=== PATIENT | female | born 1935 | race Caucasian/White ===

== ENCOUNTER 2021-01-05 01:17 | Inpatient (IN) | payer OTHER ==
[~2021-01-05] VITALS: Ht 152.4 cm; Wt 59.6 kg
[2021-01-05 01:18] VITALS: BP 177/87
[2021-01-05 01:43] LABS: ABSOLUTE NEUTROPHILS 5.7 thou/uL (1.4-8.2); BASOPHILS 0.7 % (0.0-2.0); EOSINOPHILS 2.6 % (0.0-3.0); HEMATOCRIT 38.4 % (37.0-47.0); HEMOGLOBIN 13.1 gm/dL (12.0-15.0); LYMPHOCYTES 13.9 % (24.0-44.0); MCH 29.7 pg (26.0-34.0); MCHC 34.2 g/dL (28.0-37.0); MCV 86.9 fL (80.0-100.0); MONOCYTES 6.5 % (1.0-8.0); PLATELET COUNT 237 thou/uL (150-400); POLYS 76.3 % (36.0-66.0); RBC 4.42 mil/uL (4.20-5.00); RDW 13.7 % (10.5-14.5); WBC 7.5 thou/uL (4.0-11.0)
[2021-01-05 01:48] LABS: CALCIUM 9.2 mg/dL (8.5-10.1); CREATININE 0.9 mg/dL (0.6-1.0); POTASSIUM 3.9 mmol/L (3.5-5.1)
[2021-01-05 01:58] LABS: ALBUMIN 3.4 g/dL (3.4-5.0); DIRECT BILIRUBIN 0.1 mg/dL (<0.1-0.2); TOTAL BILIRUBIN 0.6 mg/dL (0.2-1.0); TOTAL PROTEIN 6.7 g/dL (6.4-8.2)
[2021-01-05 02:18] LABS: URINE BILIRUBIN NEGATIVE (Negative); URINE BLOOD 2+ (Negative); URINE CLARITY CLEAR; URINE COLOR YELLOW; URINE GLUCOSE-RANDOM* NEGATIVE (Negative); URINE KETONES NEGATIVE (Negative); URINE LEUKOCYTES-REFLEX NEGATIVE (Negative); URINE NITRITE-REFLEX NEGATIVE (Negative); URINE PROTEIN (DIPSTICK) NEGATIVE (Negative); URINE SPECIFIC GRAVITY 1.025 (1.005-1.035); URINE UROBILINOGEN 0.2 E.U./dl (0.2-1.0)
[2021-01-05 02:56] LABS: BACTERIA-REFLEX None Seen /HPF (None Seen); CASTS None Seen /LPF (None Seen); CRYSTALS None Seen /LPF (None Seen); MUCUS None Seen strn/LPF (None Seen); SQUAMOUS None Seen /LPF (0-3); URINE RBC 1-2 Rare /HPF (NONE SEEN); URINE WBC-REFLEX None Seen /HPF (0-5)
[2021-01-05 09:06] VITALS: BP 166/80
[2021-01-05 09:11] LABS: CHOLESTEROL 164 mg/dL (<200); HDL CHOLESTEROL 50 mg/dL (>40); LDL CHOLESTEROL 91 mg/dL (<100); TC:HDL 3.3 Ratio (Not establshd); TRIGLYCERIDE 119 mg/dL (<150); VLDL 24 mg/dL (<40)
[2021-01-05 09:34] VITALS: BP 176/90
[2021-01-05 10:15] VITALS: BP 162/78
--- NOTE | 2021-01-05 18:44 | NUR ---
0930 PT ORIENTED TO ROOM AND UNIT, BED LWO AND LOCKED, SIDE RAILS UP X3, CALL LIGHT IN REACH, TELE APPLIED.
--- NOTE | 2021-01-05 19:53 | NUR ---
ENd shif note : Pt remained safe , no fall , afebrile, VS stable, one episode of unmeasured vomitus early this morning, SR on tele. nauseated all day, NPO order maintained, med given as scheduled. POC for chest pain in process. No other concerns
[2021-01-05 20:07] VITALS: BP 134/63
[2021-01-06 04:34] VITALS: BP 140/63
--- NOTE | 2021-01-06 06:36 | NUR ---
PROGRESS PT A/O X4. LUNGS CLEAR ABDOMEN SOFT WITH HYPOACTIVE BS, REPORTS LEFT UPPER QUADRANT PAIN AT AN 8 OUT OF 0/10 SCALE. PC TO WOJCIECH STILES AND A ONETIME DOSE FOR 25 MCG OF FENTANYL OBTAINED AND GIVEN WITH EFFECT PT SLEPT FOR REMAINDER OF NIGHT. UP TO BSC WITH ASSIST OF 1 VOIDING QS. REMAINS NPO FOR PIPPIDA SCAN TODAY. ORAL SWABS AT BEDSIDE FOR COMFORT. SKIN C/D/I. FALL PRECAUTIONS IN PLACE. PT USING CALL LIGHT APPROPRIATELY.
--- NOTE | 2021-01-06 07:39 | EKG ---
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
--- NOTE | 2021-01-06 07:39 | EKG ---
[address] [place] [address] ELECTROCARDIOGRAM REPORT Name: TIANA BILLY Room #: 218-P ADM IN M.R.#: [id number] Admission: 01/05/21 Attend Phys: Ronda Carlisle MD Discharge: Date of : 39 Report #: [id number] [facility] ED Test Date: 2021-01-05 Test Time: 01:17:51 Pat Name: TIANA BILLY Department: Room: 218 Gender: F Search Developer: : 1935 Requested By: Jagdeep Pineda Order Number: [id number] : Arpan Woods Measurements Intervals [place] Rate: 72 P: 54 SD: 155 QRS: 23 QRSD: 82 T: 29 QT: 382 QTc: 419 Interpretive Statements Sinus rhythm Low voltage, precordial leads No previous ECG available for comparison Electronically Signed On 01-06-2021 7:38:54 CDT by Arpan Woods [email or web address] <ELECTRONICALLY SIGNED> By: Arpan Woods MD, [facility] 01/06/21 0738 0117 0117 Arpan Woods MD, FACC /EPI
--- NOTE | 2021-01-06 07:39 | EKG ---
[address] [place] [place] [address] ELECTROCARDIOGRAM REPORT Name: TIANA BILLY Room #: 218-P ADM IN M.R.#: [id number] Admission: 01/05/21 Attend Phys: Ronda Carlisle MD Discharge: Date of : 39 Report #: [id number] [facility] ED Test Date: 2021-01-05 Test Time: 05:25:11 Pat Name: TIANA BILLY Department: Room: 218 Gender: F Public Health: nereida : 1935 Requested By: Jagdeep Pineda Order Number: [id number] MD: Arpan Woods Measurements Intervals [place] Rate: 70 P: 25 SD: 162 QRS: 12 QRSD: 105 T: 18 QT: 374 QTc: 404 Interpretive Statements Sinus rhythm Atrial premature complex Probable left atrial enlargement Low voltage, precordial leads Minimal ST depression, lateral leads Compared to ECG 01/05/2021 02:23:01 Atrial premature complex(es) now present ST (T wave) deviation now present Electronically Signed On 01-06-2021 7:39:06 CDT by Arpan Woods [email or web address] <ELECTRONICALLY SIGNED> By: Arpan Woods MD, FAC 01/06/21 0739 0525 0525 Arpan Woods MD, [facility] /EPI
[2021-01-06 08:00] VITALS: BP 150/45
--- NOTE | 2021-01-06 10:59 | 2DMMODE ---
[facility] [place] [address] 2 D/M-MODE ECHOCARDIOGRAM Name: TIANA BILLY Room #: 218-P ADM IN M.R.#: [id number] Admission: 01/05/21 Attend Phys: Ronda Carlisle MD Discharge: Date of : 37 Report #: [id number] THIS REPORT FOR: cc: Deyvi Salinas MD, David R. MD Lammoglia, Francisco J. MD ~ APPROVED REPORT Study performed: 01/06/2021 08:19:32 EXAM: Comprehensive 2D, Doppler, and color-flow Echocardiogram Patient Location: In-Patient Room #: 218 BSA: 1.55 HR: 74 bpm BP: 140/63 mmHg Rhythm: NSR Other Information Study Quality: Good Risk Factors: Cardiac Risk Factors: HTN Indications Chest Pain N^V 2D Dimensions IVSd: 9.45 (7-11mm) LVOT Diam: 19.03 (18-24mm) LVDd: 36.68 mm PWd: 8.68 (7-11mm) Ascending Ao: 24.86 (22-36mm) LVDs: 24.22 (25-40mm) Left Atrium: 29.14 (27-40mm) Aortic Root: 22.74 mm Volumes Left Atrial Volume (Systole) Single Plane 4CH: 53.72 mL Single Plane 2CH: 20.71 mL Biplane LA Volume: 37.00 mL LA ESV Index: 24.00 mL/m2 Aortic Valve AoV Peak Brayden.: 1.44 m/s [facility] [address] [place] [address] 2 D/M-MODE ECHOCARDIOGRAM Name: BILLYTIANAJILLIAN NEW Room #: 218-P [facility] IN .R.#: [id number] Admission: 01/05/21 Attend Phys: Ronda Carlisle, Discharge: Date of : 39 Report #: [id number] AO Peak Gr.: 8.25 mmHg LVOT Max P.99 mmHg LVOT Max V: 0.86 m/s BRANDT Vmax: 1.71 cm2 Mitral Valve E/A Ratio: 1.4 MV Decel. Time: 239.05 ms MV E Max Brayden.: 0.80 m/s MV A Brayden.: 0.58 m/s MV PHT: 69.32 ms IVRT: 73.82 ms Pulmonary Valve PV Peak Brayden.: 1.01 m/s PV Peak Gr.: 4.11 mmHg Pulmonary Vein P Vein S: 0.44 m/s P Vein A: 0.33 m/s P Vein D: 0.39 m/s P Vein A Dur.: 124.6 msec P Vein S/D Ratio: 1.13 Left Ventricle The left ventricle is normal size. There is normal LV segmental wall motion. There is normal left ventricular wall thickness. Left ventricular systolic function is normal. The left ventricular ejection fraction is within the normal range. LVEF is 60-65%. The left ventricular diastolic function is normal. Right Ventricle The right ventricle is normal size. The right ventricular systolic function is normal. Atria The left atrium size is normal. The right atrium size is normal. Aortic Valve The aortic valve is normal in structure. No aortic regurgitation is present. There is no aortic valvular stenosis. Mitral Valve The mitral valve is normal in structure. Mild mitral regurgitation. No evidence of mitral valve stenosis. Tricuspid Valve The tricuspid valve is normal in structure. Trace tricuspid regurgitation. Unable to assess PA pressure. [facility] [address] [place] [address] 2 D/M-MODE ECHOCARDIOGRAM Name: TIANA BILLY Room #: 218-P ADM IN M.R.#: [id number] Admission: 01/05/21 Attend Phys: Ronda Carlisle, Discharge: Date of : 39 Report #: [id number] Pulmonic Valve The pulmonary valve is normal in structure. Mild pulmonic regurgitation. Great Vessels The aortic root is normal in size. IVC is normal in size and collapses >50% with inspiration. Pericardium There is no pericardial effusion. <Conclusion> The left ventricle is normal size. There is normal LV segmental wall motion. LVEF is 60-65%. The left atrium size is normal. The aortic valve is normal in structure. The mitral valve is normal in structure. Mild mitral regurgitation. The tricuspid valve is normal in structure. Trace tricuspid regurgitation. Unable to assess PA pressure. The pulmonary valve is normal in structure. Mild pulmonic regurgitation. The aortic root is normal in size. There is no pericardial effusion. <ELECTRONICALLY SIGNED> By: Klaus Duncan MD 01/06/21 1059 1059 1059 Klaus Duncan MD /INF
[2021-01-06 12:30] VITALS: BP 124/73
--- NOTE | 2021-01-06 15:38 | NUR ---
Met with patient and dtr at bedside. Patient admits with chest pain. Resides with spouse in independent home in [facility]. All needs on one level with 3 steps to enter. Patient reports recent humerous fx and rec skilled rehab at [facility]. She has since discharged home with [facility] care. Plan to resume. Updated [facility]. Patient with 4 children. She uses a walker at home. HH PT visited with patient Tuesday. Patient initially did not recall visit. Plan home with HH at sd. Therapy evals in process. Casemgt following.
[2021-01-06 16:00] VITALS: BP 117/62
[2021-01-06 20:13] VITALS: BP 110/85
[2021-01-07 04:48] VITALS: BP 117/54
--- NOTE | 2021-01-07 06:42 | NUR ---
Assumed pt's beginning of this shift. ALert and oriented. VSS on RA. Meds given per emar. NPO after MN for chan garces today. NS at 80 currently infusing. Pt calls out appropriately. Pain med given x1 this shift. Relief noted. Pt up x1 with walker and gait belt to bathroom. Fall precaution in place. Call light within reach. Nursing to continue to monitor.
[2021-01-07 07:58] VITALS: BP 140/64
[2021-01-07 13:14] LABS: MCH 30.1 pg (26.0-34.0); MCV 86.1 fL (80.0-100.0); RBC 4.65 mil/uL (4.20-5.00); RDW 13.2 % (10.5-14.5); WBC 9.1 thou/uL (4.0-11.0)
[2021-01-07 13:34] LABS: CREATININE 0.8 mg/dL (0.6-1.0); MAGNESIUM 1.9 mg/dL (1.8-2.4); POTASSIUM 3.9 mmol/L (3.5-5.1)
[2021-01-07 17:39] VITALS: BP 141/72
[2021-01-07 19:49] VITALS: BP 145/76
--- NOTE | 2021-01-07 20:30 | NUR ---
PT ALERT AND ORIENTED TIMES FOUR. VSS THIS MORNING. PT WAS TAKEN TO SURGERY THIS MORNING FOR A LAP RAMONA. PT RETURNED THIS AFTERNOON. 4LAP SITES, MEDICATIONS GIVEN FOR PAIN AND ELEVATED BP. PT DAUGHTER AND AT BEDSIDE AFTER SURGERY. WILL CONTINIUE TO MONITOR.
[2021-01-08 04:20] VITALS: BP 155/75
[2021-01-08 04:52] VITALS: BP 134/74
--- NOTE | 2021-01-08 06:22 | NUR ---
Beginning of this shift. Pt was oriented to name. Unable to verbalize birthday. Disoriented to place and situation. Dtr at bedside at that time. Dtr concerned about pt's neurological status. Dtr educated that pt is some hours post op, anesthesia may not have worn off. Nursing notified oncall DUCT CLEANER of dtr's concerns. Pt is still few hours post op with anesthesia, may take up to 24 hours to return to pre op neuro status per DUCT CLEANER. Pt awake this am, AxO x4. Complaining of back pain. Pain med given. Ice pack provided. Fall precaution in place. Call light within reach. Nursing to continue to monitor.
[2021-01-08 07:30] VITALS: BP 159/63
--- NOTE | 2021-01-08 07:36 | NUR ---
Pt also incontinent of bladder. Bed change done this am. dtr assisted per choice.
[2021-01-08 12:00] VITALS: BP 162/55
--- NOTE | 2021-01-08 14:07 | PATH ---
[facility] [address] [place] [address] PATHOLOGY RPT PROCEDURE Name: TIANA BILLY Room #: 218-P ADM IN M.R.#: [id number] Admission: 01/05/21 Date of : 39 Discharge: Report #: [id number] Path Case #: [id number] [facility] Accession Number: [id number] . 01 Material submitted: . gallbladder - GALLBLADDER . 01 Clinical history: . LAPAROSCOPIC CHOLECYSTECTOMY W/GRAM ACUTE CHOLECYSTITIS CHEST PAIN . 02 Diagnosis: Gallbladder, cholecystectomy: - Moderate acute cholecystitis with focal surface ulceration. - Cholelithiasis. - Incidental lymph node. (IUV/db; 01/08/2021) LBQ 01/08/2021 1227 Local . 02 Electronically signed: . Sharla Chavez MD, Pathologist NPI- [id number] . 01 Gross description: . Fixative: Formalin Labeled: Gallbladder Specimen received: A previously disrupted gallbladder Dimensions: 11.0 x 4.5 x 1.4 cm Serosa: Clark, diffusely hemorrhagic and smooth Lymph node: A probable lymph node is identified measuring 0.6 x 0.5 x 0.3 cm. Mucosa: Bile-stained, diffusely hemorrhagic, and focally effaced Average wall thickness: 0.2 cm Calculi: Multiple yellow, bosselated, friable stones are identified measuring 3.5 x 3.2 x 0.9 cm in aggregate. Abnormalities: None identified A1- probable lymph node (intact), branch sales and service representative body, fundus, and the cystic duct margin. (MRF; 01/07/2021) MFE/E 01/07/2021 1704 Local . 02 Pathologist provided ICD-10: K80.00 . 02 CPT . [id number] [address] [address] PATHOLOGY RPT PROCEDURE Name: TIANA BILLY Room #: 218-P ADM IN M.R.#: [id number] Admission: 01/05/21 Date of : 39 Discharge: Report #: [id number] Path Case #: [id number] Specimen Comment: A courtesy copy of this report has been sent to [phone] Specimen Comment: [phone] Specimen Comment: Report sent to / DR LAINEZ Performed at: [address], [place] [id number] MD Bhavin Garcia MD Phone: [phone] Performed at: [address] [id number] MD Sharla Chavez MD Phone: [phone]
[2021-01-08 20:05] VITALS: BP 162/74
[2021-01-08] MEDS ORDERED: GABAPENTIN600 M1 PO (20:54)
[2021-01-09 04:33] VITALS: BP 160/70
--- NOTE | 2021-01-09 06:26 | NUR ---
Assumed pt's care this pm shift. Pt was lethargic beginning of shift. Unable to wake up enough to take PO HS meds. Dtr at bedside beginning of shift. Pt able to wake up and have conversation this am. Denies pain. Alert and oriented to person, place and situation. Pt incont of bladder this shift. Currently denying pain. Call light within reach. Will continue to monitor.
[2021-01-09 07:00] VITALS: BP 152/68
--- NOTE | 2021-01-09 09:59 | O ---
[facility] [place] [address] OPERATIVE REPORT Name: TIANA BILLY Room #: 218-P ADM IN M.R.#: [id number] Admission: 01/05/21 Attend Phys: Ronda Carlisle MD Discharge: Date of : 37 Report #: [id number] THIS REPORT FOR: cc: Deyvi Salinas MD, David R. MD Patterson,Jeffrey Jackson MD ~ DATE OF SERVICE: 01/07/2021 PREOPERATIVE DIAGNOSIS: Symptomatic cholelithiasis. POSTOPERATIVE DIAGNOSIS: Acute cholecystitis. OPERATION: Laparoscopic cholecystectomy. SURGEON: Jeffrey Grijalva M.D. ANESTHESIA: General. ESTIMATED BLOOD LOSS: 30 mL. SPECIMENS: Gallbladder. DESCRIPTION OF PROCEDURE: After informed consent was obtained, the patient was brought to the operating room and placed supine. SCDs were placed and working, preoperative antibiotics were administered, general anesthesia was induced. The abdomen was prepped and draped in the usual sterile fashion. A 10 mm incision was made above the umbilicus. Fascia was incised and a trocar was placed. Pneumoperitoneum was established. Three right upper quadrant 5 mm ports were placed. Gallbladder was grasped at the fundus and retracted cephalad. Infundibulum was grasped and retracted laterally. I dissected out the cystic duct and the cystic artery. I dissected out the cystic plate. The cystic duct was clipped and ligated leaving a clip and a PDS Endoloop on the remaining duct. Cystic artery was clipped and ligated leaving a clip on the remaining artery. Gallbladder was then taken off the liver bed with electrocautery. There was good hemostasis. The ports were removed under direct vision. The skin was closed with 4-0 Monocryl. Incisions were dressed with Steri-Strips. COMPLICATIONS: None. DISPOSITION: The patient was taken to recovery in satisfactory condition. <ELECTRONICALLY SIGNED> By: Jeffrey Grijalva MD 01/09/21 0959 1054 1108 Jeffrey Grijalva MD /nt
[2021-01-09 12:00] VITALS: BP 111/50
[2021-01-09] MEDS ORDERED: PEPCID20 MG PO (15:04)
[2021-01-09] MEDS ORDERED: HYDROCODON-ACE1 EAC7 PO (15:04)
[2021-01-09] MEDS ORDERED: COZAAR100 MG PO (15:04)
[2021-01-09] MEDS ORDERED: ENOXAPARIN40 MG/0.1 SUBQ (15:04)
[2021-01-09] MEDS ORDERED: PROPRANOLOL 20M20 M1 PO (15:04)
[2021-01-09] MEDS ORDERED: CARVEDILOL25 MG PO (15:04)
[2021-01-09] MEDS ORDERED: MIRALAX17 GM PO (15:04)
[2021-01-09] MEDS ORDERED: ACETAMINOPHEN325 M1 PO (15:04)
[2021-01-09 15:30] VITALS: BP 131/67
[2021-01-09 17:31] VITALS: BP 131/67
--- NOTE | 2021-01-09 17:49 | NUR ---
PT ALERT AND ORIENTED TIMES FOUR. VSS. PT C/O PAIN PRN PAIN MEDIATIONS GIVEN WITH GOOD RELEIF. PT TOLERATES MEDS, BUT EATS SMALL PORTIONS OF MEALS. PT FAMILY AT BEDSIDE. WILL CONTINUE TO MONITOR.
--- NOTE | 2021-01-09 17:54 | NUR ---
Patient to dc to 5N today. Patient in agreement with plan
--- NOTE | 2021-01-12 08:23 | NUR ---
I have reviewed the documentation by Myra Bennett from 01/08/21 to 01/08/21 and I concur with it. ROSE TUCKER
== END 2021-01-09 18:37 | DRG 419 ==
LOC: ER 01:17 → 2N 06:28 → EROBS 06:28 → 2N 09:57
PROVIDERS: Internal Medicine; Student in an Organized Health Care Education/Training Program; ADMIT Internal Medicine; ATTEND Internal Medicine
PROC: 0FT44ZZ Resection of Gallbladder, Percutaneous Endoscopic Approach (ICD-10-PCS; principal; 2021-01-07)
DX: K80.12 Calculus of gallbladder with acute and chronic cholecystitis without obstruction (principal); Z20.822 Contact with and (suspected) exposure to COVID-19; I10 Essential (primary) hypertension; G62.9 Polyneuropathy, unspecified; R07.89 Other chest pain; G25.0 Essential tremor; R53.81 Other malaise; K82.8 Other specified diseases of gallbladder; M19.90 Unspecified osteoarthritis, unspecified site; Z79.899 Other long term (current) drug therapy; Z88.1 Allergy status to other antibiotic agents; Z88.8 Allergy status to other drugs, medicaments and biological substances; Z98.49 Cataract extraction status, unspecified eye; Z90.710 Acquired absence of both cervix and uterus; Z90.721 Acquired absence of ovaries, unilateral
CPT/HCPCS: 10081; 50010; 50101; 50411; 50555; 51297; 51489; 52265; 52266; 53307; 53312; 53314; 55245; 56462; 56525; 56526; 58574; 62110; 62900; 70005

== ENCOUNTER 2021-01-09 13:57 | Inpatient (IN) | payer OTHER ==
[~2021-01-09] VITALS: Ht 152.4 cm; Wt 59.5 kg
--- NOTE | ~2021-01-09 | HC ---
[facility] [place] [address] CONSULTATION Name: TIANA BILLY Room #: 506-1 ADM IN M.Gabrielle.#: [id number] Admission: 01/09/21 Attend Phys: Deyvi Ludwig MD Discharge: Date of : 37 Report #: [id number] THIS REPORT FOR: cc: Deyvi Salinas MD, David R. MD Deutch,Piyush Cain. PhD ~ DATE OF SERVICE: 01/18/2021 NEUROBEHAVIORAL STATUS EXAM AGE: 85. ATTENDING PHYSICIAN: Deyvi Ludwig M.D. EXTRACTOR LOADER AND UNLOADER: Piyush Thao, PhD. CLINICAL PRESENTATION: The patient is an 85-year-old female admitted to the [facility] rehabilitation unit with medical complexity and generalized debility. She is reported to have had an episode of acute cholecystitis and underwent a lap wilfredo on 01/07/2021. She experienced some mild confusion that has improved. The patient has a prior right hip fracture on 12/08/2020. Her assessment on admission to the rehab unit is medical complexity with generalized debility, acute symptomatic cholecystitis, status post lap wilfredo on 01/07/2021, recent hip fracture with status post pinning on 12/08/2020, essential tremor, hypertension, premorbid peripheral neuropathy and DJD. A complete description of her medical condition and history can be found in her medical record. Neuropsychological consultation was requested to provide assistance in the assessment of cognitive and emotional status and to provide recommendations and services. Prior to this most recent admission, she was living at home with her . The patient has four children who live within the [place] area. Her family is described as very supportive. The patient is a high school graduate with a 2-year associate of arts degree. 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 She reports having been independent with managing her own medication, finances and driving. However, problems with getting lost while driving are reported along with difficulty in remembering her medications. She is also reported to have left an oven and a stove on, indicating difficulty with cooking and safety concerns. TECHNIQUES UTILIZED: Clinical interview, review of medical records, staff consultation and behavioral observation, family interview -- daughter and spouse, mini mental status exam 2 standard version, clock drawing. EXAMINATION FINDINGS: The patient was alert and cooperative with the [facility] [address] [place] [address] CONSULTATION Name: TIANA BILLY Room #: 506-1 [facility] IN M.R.#: [id number] Admission: 01/09/21 Attend Phys: Deyvi Ludwig MD Discharge: Date of : 39 Report #: [id number] assessment. There is no evidence of aphasia. Her thoughts are logical and goal oriented. There is no evidence of thought disorder. She does not report auditory or visual hallucinations. She describes her symptoms to include memory, word finding and depression. She does not report anxiety, difficulty with appetite or sleep. She is concerned about her wellbeing and also the wellbeing of her . The patient has good insight into recognizing deficits in memory and cognitive functioning. Her performance on the MMSE 2 brief version was extremely low with a raw score of 11 and a T score of 23. She was 3/3 for initial registration, 3/5 for orientation to time, 3/[address] and 2/3 for immediate recall of 3 items after a brief time delay and distraction. Performance on the standard version of the MMSE 2 is extremely low with a raw score of 20/30, which is a T score of 25 and percentile rank of 1. She was 0/5 for serial sevens, 2/2 for naming, 1/1 for repetition, 3/3 for auditory comprehension. She could read and follow a single command, write a sentence and copy a simple geometric design. The patient was unable to accurately set the hands of a clock at a designated time. Visual spatial construction was within normal limits. The patient had an incident in which she fell and sustained a hip fracture, but also struck her head. The event in which she had fallen in 11/2020 likely has contributed to a concussion. DIAGNOSTIC IMPRESSION: 1. Neurocognitive disorder, unspecified -- possibly due to concussive event and medical etiology without behavior disorder, extent to be determined. 2. Unspecified anxiety disorder/depressed mood. RECOMMENDATIONS: The patient will likely benefit from a neuropsych assessment approximately 1-2 months following discharge to clarify cognitive status. Driving should be discontinued until a more formal assessment of cognitive functioning can be obtained. Assistance with the management of medication, finances and nutrition will be of benefit to maintain safety. Family education into the aspects of cognitive functioning that have yet to return to normal will be of benefit. Thank you very much for allowing me to provide the consultation on this patient. By: 1710 0201 Piyush Thao, PhD /nt
[~2021-01-09 13:57] MED LIST: GABAPENTIN600 M1 PO
[2021-01-09] MEDS ORDERED: CARVEDILOL25 MG PO (15:04)
[2021-01-09] MEDS ORDERED: PEPCID20 MG PO (15:04)
[2021-01-09] MEDS ORDERED: PROPRANOLOL 20M20 M1 PO (15:04)
[2021-01-09] MEDS ORDERED: MIRALAX17 GM PO (15:04)
[2021-01-09] MEDS ORDERED: COZAAR100 MG PO (15:04)
[2021-01-09] MEDS ORDERED: ACETAMINOPHEN325 M1 PO (15:04)
[2021-01-09] MEDS ORDERED: ENOXAPARIN40 MG/0.1 SUBQ (15:04)
[2021-01-09] MEDS ORDERED: HYDROCODON-ACE1 EAC7 PO (15:04)
[2021-01-09 18:35] VITALS: BP 106/50
--- NOTE | 2021-01-09 18:35 | NUR ---
PT ARRIVED TO ROOM FROM M/S. PT STATED HER STOMACH FEELS A LITTLE PAIN FROM SURGERY. PT ASKED IF THEY PUT GAS IN STOMACH FOR SURGERY, THIS SALES DEVELOPMENT REPRESENTATIVE STATED YES. PT WAS ABLE TO TRANSFER FROM W/C TO BED AND WALKER WITHOUT ANY ASSISTANCE, PT SLOW TO TRANSFER. PT DTR AT BEDSIDE ACCOMPANIED HER. PT IN GOOD SPIRITS. PT HAD SURGERY TO RT HIP ORIF 12/08/20 AND WENT HOME WITH HH AND STARTED HAVING PAIN TO LEFT BREAST AND TOWARDS THE BACK, DRY HEAVES, N/V. LAP CHOLESTECTOMY WAS PERFORMED 01/07/21, PT HAD BM 01/08/21. PT LIVES AT HOME WITH AND HAS 4 DTRS THAT ARE INVOLVED IN HER CARE.
--- NOTE | 2021-01-10 00:27 | NUR ---
assumed care approx 1900 evening 01/09. pt lying in bed alert and oriented x4, pleasant and cooperative. daughter at bedside. pt c/o pain to back, given po Tylenol as ordered and reported pain relief. pt took hs meds with water tolerating well. pt fell asleep shortly after daughter left at 2100 and has been sleeping soundly since. bed alarm on and call light in reach. will continue to monitor.
[2021-01-10 05:56] LABS: HEMATOCRIT 34.5 % (37.0-47.0); HEMOGLOBIN 12.3 gm/dL (12.0-15.0); MCH 30.8 pg (26.0-34.0); MCHC 35.6 g/dL (28.0-37.0); MCV 86.6 fL (80.0-100.0); RBC 3.99 mil/uL (4.20-5.00); RDW 13.5 % (10.5-14.5); WBC 6.7 thou/uL (4.0-11.0)
[2021-01-10 06:22] LABS: CALCIUM 9.2 mg/dL (8.5-10.1); CREATININE 0.9 mg/dL (0.6-1.0)
[2021-01-10 07:06] LABS: FOLIC ACID 8.8 ng/mL (8.6-58.9)
[2021-01-10 08:00] VITALS: BP 140/68
--- NOTE | 2021-01-10 09:44 | NUR ---
ASSUMED CARE AT 0700. PATIENT IS ALERT AND ORIENTEDX4. PATIENT PRECIADO'S, INCENDIARY POWDER MIXER ARE EQUAL. LUNGS ARE CLEAR AND DEMINISHED. ENCOURAGED I.S. ABD IS SOFT WITH BSX4. UP TO THE BATHROOM WITH ASSIST OF 1 STAFF AND GAIT BELT TO VOID TOM COLORED URINE. PATIENT HAS 3 ABD INCISION THAT CONTINUE TO HEAL. FALL AND SAFETY PROTOCOLS IN PLACE. C/O HIP AND ABD PAIN. MEDICATED WITH PRN PAIN MED. COTINUES TO PROGRESS SLOWLY TOWARDS D/C GOALS. WILL CONTINIUE TO MONITER.
[2021-01-10 19:58] VITALS: BP 116/54
--- NOTE | 2021-01-11 00:28 | NUR ---
PT ALERT AND ORIENTED X 4. AMB TO BR WITH WALKER AND ASSIST X 1 WITHOUT DIFFICULTY. 3 LAP SITES TO ABDOMEN C/D/I. PT TOOK HS MEDS WITH WATER WITHOUT DIFFICULTY. PT C/O PAIN IN LEFT HIP. TYLENOL GIVEN WITH ADEQUATE PAIN RELIEF VERBALIZED. BED ALARM ON FOR SAFETY. PT APPEARS TO BE SLEEPING ON HOURLY ROUNDS.
[2021-01-11 07:15] VITALS: BP 137/67
--- NOTE | 2021-01-11 12:07 | NUR ---
ASSUMED CARE AT 0700. PATIENT IS ALERT AND ORIENTED X4. PATIENT PRECIADO'S , HOG DROPPER ARE EQUAL. LUNGS ARE CLEAR. ABD IS SOFT WITH BSX4. PATIENT HAS 3 INCISIONAL SITES THAT ARE DRY AND INTACT. PATIENT IS ASSIST OF 1 STAFF AND GAIT BELT TO THE BATHROOM TO VOID TOM COLORED URINE. UP IN THE CHAIR FOR MEALS. FALL AND SAFETY PROTOCOLS IN PLACE. C/O LEFT HIP PAIN. MEDICATED WITH PRN PAIN MED. PATIENT CONTINUES TO PROGRESS TOWARDS D/C GOALS. WILL CONTINUE TO MONITER.
[2021-01-11 12:10] VITALS: BP 97/51
[2021-01-11 20:10] VITALS: BP 116/58
[2021-01-11 21:03] VITALS: BP 116/58
--- NOTE | 2021-01-12 02:53 | NUR ---
PT ASSESSMENT COMPLETED AND VSS. MEDS GIVEN ORDERED AND WELL TOLERATED. FALL PRECAUTIONS IN PLACE. SUPPORTIVE DAUGHTER AT BEDSIDE. UP TO THE BATHROOM WITH ASST/GAIT/WALKER. STEADY. VOIDING DARK YELLOW URINE. SURGICAL SITES X 3 ON ABD WITH STERI STRIPS DRY AND INTACT. LEFT HIP SURGICAL SITE HEALED. PRN PAIN MEDICATION HELPFUL. SLEEPING WELL AT THIS TIME. WILL CONTINUE TO MONITOR FREQUENTLY.
[2021-01-12 04:00] VITALS: BP 116/58
[2021-01-12 05:55] LABS: CALCIUM 8.9 mg/dL (8.5-10.1); CREATININE 0.7 mg/dL (0.6-1.0); POTASSIUM 3.5 mmol/L (3.5-5.1)
[2021-01-12 07:15] VITALS: BP 157/65
--- NOTE | 2021-01-12 09:20 | NUR ---
PT SITTING IN W/C WORKING WITH THERAPY. PT STATED SHE DID HAVE SOME PAIN TO LEFT HIP OF 4 ON 1-10 SCALE. PT LUNGS CLEAR. PT STATED SHE REALIZED HOW MUCH WORK IT IS TO DO THERAPY. ADM TYLENOL 325MG 2 TABS PO FOR PAIN. PT DENIES ANY ABD DISCOMFORT. LBM 01/12.
--- NOTE | 2021-01-12 12:04 | NUR ---
Chart review, CM visited with patient while she was working with physical therapy. Intro to cm, team meeting and dcp. She lives at home with her spouse. 3 steps to enter the home, no stairs inside the home that she must do. She uses at walker. Manage own medication. [facility] home health if needed at tx. Been to [facility] rehab in the past. Support from spouse and children if needed. Will cont. following as needed for dc needs.
--- NOTE | 2021-01-12 12:53 | NUR ---
Nutrition: Received consult related to the fact pt dislikes foods here. admitted with rehab unit with med complexity, general debility. RD met with pt and listened to concerns, obtained food preferences. Pt was not aware of option to order meals-assisted pt with this. Pt was happy with visit. Noted borderline low folate level. REC folic acid supplementation. Stable weights. Consider low nutrition risk.
--- NOTE | 2021-01-12 13:30 | NUR ---
ASSISTED PT IN BATHROOM, SHE HAD A LOOSE INCON. BM AND NEEDED PANTS CHANGED. PT HAS BRIEF ON AT THIS TIME AND NEW PANTS. PT STEADY WITH WALKER.
[2021-01-12 20:00] VITALS: BP 134/58
--- NOTE | 2021-01-13 00:21 | NUR ---
PT ASSESSMENT COMPLETED AND VSS. MEDS GIVEN ORDERED AND WELL TOLERATED. FALL PRECAUTIONS IN PLACE. UP TO THE BATHROOM WITH ASST/GAIT/WALKER. STEADY. VOIDING MODERATE AMOUNT OF DARK YELLOW URINE. 0 BM SO FAR DURING SHIFT. SUPPORTIVE DAUGHTER AT BEDSIDE THIS EVENING. PROVIDED MUCH EMTIONAL SUPPORT. SLEEPING WELL AT THIS TIME. WILL CONTINUE TO MONITOR FREQUENTLY. TYLENOL HELPFUL FOR PAIN. LAB SITES X 3 DRY AND INTACT.
--- NOTE | 2021-01-13 08:24 | NUR ---
PT SITTING UP IN CHAIR. PT HAD ISSUES WITH SWALLOWING 1/2 TAB OF K+, ENCOURAGED PT TO USE APPLESAUCE WITH K PILL. PT STATED THAT HELPED AND SHE WAS ABLE TO SWALLOW K PILL. PT DENIES ANY NAUSEA OR PAIN AT THIS TIME. PT HAD BM YESTERDAY AND WAS INCON. OF STOOL. PT DID TAKE COLACE THIS AM. PT LUNGS CLEAR AND ON ROOM AIR. PT UP WITH WALKER AND STAND-BY ASSIST. PT VERY PLEASANT.
[2021-01-13 08:30] VITALS: BP 145/83
--- NOTE | 2021-01-13 11:36 | NUR ---
PT WORKING ON EXERCISE BIKE. PT COMPLAINED OF PAIN TO LEFT HIP. ADM TYLENOL 325MG 2 TABS PO FOR PAIN OF 5 ON 1-10 SCALE.
--- NOTE | 2021-01-13 12:56 | NUR ---
Team meeting, recommendation: mild to mod cognition and mod severe memory. walking 200ft fww. will need assist with pills and bills. DC 01/20 with hh ( pt, ot, st and nursing) [facility] . No dme needs . started use of memory notebook.
--- NOTE | 2021-01-13 14:26 | NUR ---
I have reviewed the documentation by KAYLIN ROSARIO from 01/13/21 to 01/13/21 and I concur with it. SVEN DEL CID M
[2021-01-13 19:09] VITALS: BP 131/66
[2021-01-13 20:13] VITALS: BP 131/66
--- NOTE | 2021-01-14 03:14 | NUR ---
ASSUMED CARE AT 1900 OF 01/13. PATIENT IS A&OX4, DENIES SOB. REPORT ABDOMINAL PAIN, PRN TYLENOL ADMINISTERED PER PATIENT REQUEST. 3 ABD INCISION ARE HEALING, NO SIGNS OR SYMPTOMS OF INFECTION NOTED. ASSIST OF 1 USING GB AND WALKER TO TRANSFER AND AMBULATE TO BATHROOM TO VOID YELLOW URINE. FALL PRECAUTIONS IN PLACE, CALL LIGHT WITHIN REACH. WILL CONTINUE TO MONITOR.
[2021-01-14 07:15] VITALS: BP 151/76
--- NOTE | 2021-01-14 09:01 | NUR ---
I have reviewed the documentation by Myra Bennett from 01/12/21 to 01/12/21 and I concur with it. ROSE TUCKER
--- NOTE | 2021-01-14 10:55 | NUR ---
Spoke with spouse phyllis, he agrees with dcp, any hh is fine. She was set up with [facility] but then ended up back in the hospital. [facility] is ok with us per phyllis. Spouse will be able to assist with medication and finances. Will cont following as needed for dc needs.
--- NOTE | 2021-01-14 11:09 | NUR ---
PATIENT IS A&OX3-4, ABLE TO VOICE NEED. PATIENT IS UP WITH ASSIST OF STAFF, USES WALKER FOR MOBILITY. PATIENT TOOK HER MEDICATION WHOLE WITHOUT DIFFICULTY, SHE CHOOSE NOT TO TAKE MIRALAX, "I HAD QUITE A FEW BM THE DAY BEFORE YESTERDAY". SHE IS EATING MEALS, AND DRINKING FLUID WELL. PATIENT IS CALM, COOPERATIVE WITH CARE. LCTA, RESP EVEN/UNLABORED, NO SOA/CYANOSIS NOTED. PATIENT DENIES HAVING PHYSICAL PAIN. NO SIGN OF ACUTE DISTRESS NOTED, ALL FALL PRECATIONS IN PLACE, CALL LIGHT IN REACH, WILL CONTINUE TO MONITOR.
[2021-01-14 11:14] VITALS: BP 110/72
[2021-01-14 19:35] VITALS: BP 124/71
--- NOTE | 2021-01-15 03:25 | NUR ---
01-14-21 CARE TRANSFERRED 1899. LATER PT AAOX4, VSS, RR EVEN AND NONLABORED ON RA; LUNGS CLEAR, HT RR, ABD SOFT/ACTIVE. PT REPORTS PAIN IN RIGHT THIGH/HIP PAIN HAS BEEN MANAGED WITH PRN MEDICATION. DURING MEDICATION PT HAD NO DIFFICULTIES TAKING MEDICATION WHOLE WITH THIN LIQUIDS. PT WILL CONTINUE TO BE MONITOR.
--- NOTE | 2021-01-15 08:05 | NUR ---
PT SITTING UP IN W/C THIS AM. PT STATED SHE HAD THIS SHARP STABBING PAIN TO RT SIDE UNDER BREAST. PT DIDN'T KNOW IF THAT WAS NORMAL OR NOT. INCISION SITES SEEM TO BE HEALING WITHOUT REDDNESS OR SWELLING. UMBILICAL INCISION HAS DRIED BLOOD ON STERI-STRIPS, HARD TO SEE PROGRESS OF INCISION DUE TO DRIED BLOOD UNDER STERI-STRIP. PT HAS ACTIVE BS. LBM 01/12. PT UP WITH WALKER, SLIGHT TREMOR NOTED. PT VERY PLEASANT, PT DENIES ANY N/V.
[2021-01-15 08:35] VITALS: BP 141/68
[2021-01-15 12:35] VITALS: BP 128/59
--- NOTE | 2021-01-15 14:37 | NUR ---
PT WALKING WITH THERAPY AND DENIES ANY PAIN TO RT SIDE AT THIS TIME.
[2021-01-15 16:29] LABS: ABSOLUTE NEUTROPHILS 3.8 thou/uL (1.4-8.2); BASOPHILS 1.2 % (0.0-2.0); EOSINOPHILS 6.9 % (0.0-3.0); HEMATOCRIT 35.5 % (37.0-47.0); HEMOGLOBIN 12.4 gm/dL (12.0-15.0); LYMPHOCYTES 23.4 % (24.0-44.0); MCH 30.4 pg (26.0-34.0); MCV 86.7 fL (80.0-100.0); MONOCYTES 9.3 % (1.0-8.0); PLATELET COUNT 318 thou/uL (150-400); POLYS 59.2 % (36.0-66.0); RBC 4.09 mil/uL (4.20-5.00); RDW 13.1 % (10.5-14.5); WBC 6.5 thou/uL (4.0-11.0)
[2021-01-15 16:37] LABS: CALCIUM 9.4 mg/dL (8.5-10.1); CREATININE 1.1 mg/dL (0.6-1.0)
[2021-01-15 19:22] VITALS: BP 132/74
--- NOTE | 2021-01-15 21:53 | NUR ---
ASSUMED CARE OF PT AT 1925. PT IS A&OX3. IS ON ROOM AIR. IS STABLE. DENIES PAIN IN ABD AT THIS TIME. 3 LAP SITES WITH STERI STRIPS INTACT. IS UP WITH 1 ASSIST, GB, WALKER. FALL PRECAUTIONS & HOURLY ROUNDING MAINTAINED. DAUGHTER WAS AT BEDSIDE MOST OF EVENING WATCHING TV WITH PT UNTIL VISITING HOURS WERE OVER. PT IS CURRENTLY ASLEEP. CALL LIGHT WITHIN REACH. LABS & VITALS REVIEWED. WILL CONTINUE TO MONITOR.
[2021-01-16 07:15] VITALS: BP 145/77
--- NOTE | 2021-01-16 07:45 | NUR ---
ASSUMED CARE AT 0700. PATIENT IS ALERT AND ORIENTED X4. 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 LUNGS ARE CLEAR AND DEMINISHED ON THE RIGHT. ENCOURAGED I.S. TCDB. ABD LAP SITES INTACT. PATIENT IS UP WITH ASSIST OF 1 STAFF AND GAIT BELT TO VOID TOM COLORED URINE. FALL AND SAFETY PROTOCOLS IN PLACE. DENIES PAIN AT THIS TIME. CONTINUES TO PROGRESS SLOWLY TOWARDS D/C GOALS. WILL CONTINUE TO MONITER.
--- NOTE | 2021-01-16 14:16 | NUR ---
Faxed referral to [facility] ( pt, ot, st, nursing ) for dc needs on 01/20.
--- NOTE | 2021-01-16 14:31 | NUR ---
I have reviewed the documentation by Myra Bennett from 01/16/21 to 01/16/21 and I concur with it. ROSE TUCKER
[2021-01-16 19:31] VITALS: BP 124/61
--- NOTE | 2021-01-17 03:35 | NUR ---
ASSUMED CARE AT 1900 OF 01/16. PATIENT IS A&OX4, DENIES ACUTE PAIN OR SOB. MINIMAL ASSIST OF 1 WITH GB AND WALKER FOR TRANSFER AND AMBULATION. 3 ABDOMINAL INCISIONS ARE HEALING, NO S/S OF INFECTION, STERI STRIP IN PLACE. FALL PRECAUTIONS IN PLACE, SLEEPING DURING HOURLY ROUNDS, NON LABORED BREATHING NOTED. WILL CONTINUE TO MONITOR
[2021-01-17 08:15] VITALS: BP 117/72
--- NOTE | 2021-01-17 14:03 | NUR ---
I have reviewed the documentation by Myra Bennett from 01/17/21 to 01/17/21 and I concur with it. ROSE TUCKER
--- NOTE | 2021-01-17 15:23 | NUR ---
PATIENT CARE ASSUMED AT 0700. ALERT AND ORIENTED X 4 - AGREEABLE AND PLEASANT. STATES NO PAIN. STERI STRIPS DRY AND IN PLACE IN ABDOMINAL AREA FROM GALL BLADDER SURGERY. ASSESSED AND INTACT. AMBULATES SLOWLY WITH WALKER. NEEDS MONITORING WHEN UP AN WALKING TO [facility]. ABLE TO DO SELF CARE - NO PAIN WHEN ASSESSED IN LOWER EXTREMITY. QUESTIONED IF TYLENOL NEEDED FOR DISCOMFORT AND STATED NO PAIN CURRENTLY. PATIENT HAD DAUGHTER VISIT AND WENT WELL. STATES STILL HAS DIFFICULTY LEFT LEG DISCOMFORT AT TIMES AND WEAKNESS. FEELS IMPROVING WITH EXERCISES AND WALKING PHYSICAL THERAPY. WILL CONTINUE TO MONITOR FOR DISCOMFORT AND SAFETY AND ASSIST WHEN NEEDS ARE REQUESTED.
[2021-01-17 21:00] VITALS: BP 140/69
--- NOTE | 2021-01-18 03:32 | NUR ---
ASSUMED CARE AT 1900 OF 01/17. A&OX4, VSS, DENIES PAIN OR SOB. STANDBY ASSIST WITH TRANSFERS AND AMBULATION USING GB AND WALKER. 3 ABD INCISIONS ARE INTACT, HEALING AND HAVE NO SIGNS OF INFECTION. FALL PRECAUTIONS IN PLACE, CALL LIGHT WITHIN IN REACH. SLEEPING DURING HOURLY ROUNDS, WILL CONTINUE TO MONITOR.
[2021-01-18 07:15] VITALS: BP 139/66
--- NOTE | 2021-01-18 09:23 | NUR ---
PT WALKING IN ROOM WITH WALKER. PT DENIES ANY PAIN TO ABD. PT STATED SHE GETS SOME PAIN TO LEFT HIP AT TIMES, 2 AT THIS TIME. PT REFUSED LAXATIVES DUE TO BM AND ALSO SHE SAYS SHE WILL BE IN TROUBLE IF SHE TAKES THEM. PT LUNGS CLEAR. PT ABD SOFT. PT LIKES APPLESAUCE WITH K MED. AND PILL CUT IN HALF.
[2021-01-18 12:20] VITALS: BP 109/62
--- NOTE | 2021-01-18 16:06 | NUR ---
PT HAD A GOOD DAY TODAY. PT DIDN'T ASK FOR ANY PAIN MEDICATION FOR LEFT HIP.
[2021-01-18 19:26] VITALS: BP 132/63
--- NOTE | 2021-01-19 02:40 | NUR ---
assumed care approx 1900 evening 01/18. pt alert and oriented x4, pleasant and cooperative. pt in good mood stating she felt she has made good progress with therapy and looking forward to leaving soon. pt took hs meds with water tolerating well. appears to be sleeping soundly with hourly rounding. bed alarm on and call light in reach. will continue to monitor.
[2021-01-19 07:15] VITALS: BP 139/66
[2021-01-19 09:15] VITALS: BP 139/66
--- NOTE | 2021-01-19 11:59 | NUR ---
Nutrition followup: pt continues to eat well, 90-100% of meals and voiced no complaints. Stable weights. Folic acid/vitamin D levels are borderline low. Continue to recommend supplementation. Expected D/C 01/20. Low nutrition risk.
[2021-01-19 18:50] VITALS: BP 145/69
--- NOTE | 2021-01-20 00:03 | NUR ---
PT ALERT AND ORIENTED X 4. MODIFIED INDEPENDENT IN ROOM WITH WALKER WITHOUT DIFFICULTY. PT REFUSED COLACE AND MIRALAX AT HS. PT C/O PAIN IN LEFT HIP. TYLENOL GIVEN ORDERED. 4 ABD INCISION SITES C/D/I WITH STERI-STRIPS. PT APPEARS TO BE SLEEPING ON HOURLY ROUNDS.
[2021-01-20 07:15] VITALS: BP 135/58
--- NOTE | 2021-01-20 08:16 | NUR ---
PT WAS SLEEPING THIS AM DURING ROUNDS. PT UP NOW AT THIS TIME SITTING ON SIDE OF BED. PT DENIES ANY PAIN AT THIS TIME TO ABD OR LEFT HIP. PT DENIES ANY N/V. PT TOLERATED DIET, TOOK MEDS WHOLE WITH THIN WATER. PT USES WALKER IN ROOM WITH STEADY GAIT. PT GOING HOME TODAY.
[2021-01-20] MEDS ORDERED: COREG6.25 MG PO (09:41)
[2021-01-20] MEDS ORDERED: COLACE100 MG PO (09:41)
[2021-01-20] MEDS ORDERED: COZAAR100 MG PO (09:41)
[2021-01-20] MEDS ORDERED: MIRALAX17 GM PO (09:41)
--- NOTE | 2021-01-20 11:04 | PLAN ---
[facility] [place] [address] REHAB UNIT PLAN OF CARE Name: TIANA BILLY Room #: 506-1 ADM IN M.R.#: [id number] Admission: 01/09/21 Attend Phys: Deyvi Ludwig MD Discharge: Date of : 39 Report #: [id number] THIS REPORT FOR: cc: Deyvi Salinas MD, David R. MD Smithson,Deyvi Champagne MD ~ PROGRESS NOTE AND OVERALL PLAN OF CARE HISTORY OF PRESENT ILLNESS: The patient is seen on the inpatient rehabilitation jay. She was in no distress. Temperature 36.6, pulse 67, respirations 16, blood pressure 157/65. She has been admitted to the acute inpatient rehabilitation jay with generalized debilitation post-laparoscopic cholecystectomy on 01/07/2021 and prior left hip fracture for which she underwent pinning on 12/08/2020. She is allowed weightbearing as tolerated. She had no specific complaints for me this morning. Abdomen, she has the laparoscopic incisions, which appeared to be healing well, soft, bowel sounds positive. She has the old left hip incisions both proximal and distal that appeared to be healing well. No evidence of erythema. There is no focal calf swelling. She has normal tone of her lower extremities. She was cooperative in her examination and follows commands without difficulty. Transfers are contact guard. She is ambulating 170 feet contact guard with a front-wheeled walker. Noted to be allowed weightbearing as tolerated. In occupational therapy, lower body dressing is max assist with upper body dressing moderate assistance. In speech therapy, she is noted to have moderate cognitive deficits with severe memory deficits. ASSESSMENT: 1. Medical complexity with generalized debilitation. 2. Acute symptomatic cholecystitis, status post laparoscopic cholecystectomy, 01/07/2021. 3. Recent hip fracture on the left, status post pinning per report, 12/08/2020, weightbearing as tolerated. 4. Essential tremor. 5. Hypertension. 6. Premorbid peripheral neuropathy. 7. Degenerative arthritis. PLAN: The overall plan of care is based on the pre-admission screen and information garnered from therapy assessments. 1. Estimated length of stay is probably around 10-14 days. 2. Medical prognosis is reasonably good. 3. Anticipated interventions includes the interdisciplinary acute inpatient rehabilitation program. 4. Anticipated functional outcomes would be for the patient to become modified independent with transfers, mobility and ADL issues as well as improved [address] [address] REHAB UNIT PLAN OF CARE Name: TIANA BILLY Room #: 506-1 [facility] IN [facility]#: [id number] Admission: 01/09/21 Attend Phys: Deyvi Ludwig MD Discharge: Date of : 39 Report #: [id number] cognition. Goal would be for her to return back to the home setting at a walker level. 5. Discharge destination would be back to the house where she lives with her . 6. Expected therapy by discipline includes PT, OT and speech 1 hour per day each 5 days a week throughout the duration of the acute inpatient rehabilitation stay. ADDENDUM: The patient's prognosis for significant practical improvement within a reasonable period of time appears good. Given the patient's complex medical condition and risk of further medical complication, rehabilitation services could not be safely provided at the lower level of care such as a half-way facility. <ELECTRONICALLY SIGNED> By: Deyvi Ludwig MD 01/20/21 [id number] Deyvi Ludwig MD /nt
[2021-01-20 11:41] VITALS: BP 135/58
--- NOTE | 2021-01-20 11:52 | NUR ---
faxed dc orders to [facility] [phone]
[2021-01-20] MEDS ORDERED: GABAPENTIN600 M1 PO (15:01)
--- NOTE | 2021-01-20 15:30 | NUR ---
PT HERE FOR DISCHARGE. PT VERBALY UNDERSTOOD D/C ORDERS. PT LEFT VIA W/C TO CAR. PT WAS ABLE TO GET INTO CAR WITH STAND-BY ASSIST. PT TOOK ALL BELONGINGS AND ALSO HER PERSONAL WALKER.
[2021-01-21] MEDS ORDERED: COREG6.25 MG PO ×2 (12:01→12:21)
[2021-01-21] MEDS ORDERED: GABAPENTIN600 M1 PO (12:02)
[2021-01-21] MEDS ORDERED: COZAAR 50 MG TA50 MG PO (12:21)
--- NOTE | 2021-01-21 14:32 | NUR ---
REFAXED DISCHARGE ORDERS AND SUMMARY TO [facility]. CONFIRMED WITH [facility]/INTAKE THAT THEY RECEIVED AND WILL BEGIN PT/OT/ST SERVICES.
== END 2021-01-20 15:30 | disposition home health service (06) | DRG 948 ==
PROVIDERS: Internal Medicine; Nurse Practitioner; Nurse Practitioner Family; ADMIT Physical Medicine & Rehabilitation; ATTEND Physical Medicine & Rehabilitation
DX: R53.81 Other malaise (principal); K81.0 Acute cholecystitis; I10 Essential (primary) hypertension; K59.00 Constipation, unspecified; E53.8 Deficiency of other specified B group vitamins; G62.9 Polyneuropathy, unspecified; G25.0 Essential tremor; R41.9 Unspecified symptoms and signs involving cognitive functions and awareness; F41.9 Anxiety disorder, unspecified; F32.9 Major depressive disorder, single episode, unspecified; M19.90 Unspecified osteoarthritis, unspecified site; Z88.6 Allergy status to analgesic agent; Z88.2 Allergy status to sulfonamides; Z88.1 Allergy status to other antibiotic agents; Z88.8 Allergy status to other drugs, medicaments and biological substances; Z90.49 Acquired absence of other specified parts of digestive tract; Z90.710 Acquired absence of both cervix and uterus; Z90.721 Acquired absence of ovaries, unilateral; Z98.49 Cataract extraction status, unspecified eye
CPT/HCPCS: 10112